=== PATIENT | female | born 2000 | race Two or more races ===

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

== ENCOUNTER 2019-07-23 14:39 | Emergency (ER) | payer OTHER ==
[2019-07-23 14:47] VITALS: BP 142/83
--- NOTE | 2019-07-23 15:07 | ED Physician Documentation ---
History of Present Illness - Stated complaint Stated Complaint: COUGH, SORE THROAT, SOA - Chief complaint Chief Complaint: General - History obtained from History obtained from: Patient (19-year-old woman has been sick since yesterday with some diarrhea, nonproductive cough and sore throat. Also nasal congestion. No fevers. No recent travel or known sick contacts.) Review of Systems Constitutional: denies: Fever, Chills, Fatigue Ears: denies: Ear pain Nose: reports: Rhinorrhea / runny nose Throat: reports: Sore throat Respiratory: reports: Cough. denies: Dyspnea PD PAST MEDICAL HISTORY - Past Surgical History Past Surgical History: No - Present Medications Home Medications: Ambulatory Orders Medication Instructions Recorded Confirmed Hydrocodone/Acetaminophen 1 - 2 each PO Q6H PRN #14 tablet 03/27/18 [Hydrocodon-Acetaminophen 5-325] Guaifenesin/Pseudoephedrne HCl 1 each PO BID PRN #20 tab.er.12h 07/23/19 [Mucinex D ER 600-60 mg Tablet] Loperamide [Imodium] 2 mg PO QID PRN #10 capsule 07/23/19 - Allergies Allergies/Adverse Reactions: Allergies Allergy/AdvReac Type Severity Reaction Status Date / Time No Known Drug Allergies Allergy Verified 07/23/19 14:47 - Social History Does the pt smoke?: No Smoking Status: Never smoker Does the pt drink ETOH?: No Does the pt have substance abuse?: No - Immunizations Immunizations are current?: Yes PD ED PE NORMAL - Vitals Vital signs reviewed: Yes - General General: Alert and oriented X 3, No acute distress - HEENT HEENT: Ears normal, Pharynx benign - Neck Neck: Supple, no meningeal sign, No bony TTP - Cardiac Cardiac: RRR, No murmur - Respiratory Respiratory: No respiratory distress, Clear bilaterally - Abdomen Abdomen: Non tender - Derm Derm: No rash - Neuro Neuro: Alert and oriented X 3, Normal speech - Psych Psych: Normal mood, Normal affect Results - Vitals Vitals: Vital Signs - 24 hr 07/23/19 14:45 Temperature 37 C Heart Rate 108 H Respiratory 16 Rate Blood Pressure 142/83 H O2 Saturation 98 Oxygen O2 Source Room air PD MEDICAL DECISION MAKING - ED course ED course: 19-year-old woman with viral URI. Not typical for current coronavirus outbreak. Supportive care and watchful waiting was advised. Departure - Departure Disposition: 01 Home, Self Care Clinical Impression: Viral URI with cough Condition: Good Record reviewed to determine appropriate education?: Yes Instructions: ED Viral Syndrome Prescriptions: Guaifenesin/Pseudoephedrne HCl [Mucinex D ER 600-60 mg Tablet] 1 each PO BID PRN #20 tab.er.12h PRN Reason: congestion Loperamide [Imodium] 2 mg PO QID PRN #10 capsule PRN Reason: Diarrhea Comments: Return if you develop high fevers, shortness of breath or other new or concerning symptoms. Forms: Activity restrictions
== END 2019-07-23 15:37 | disposition home or self-care (01) ==
LOC: ED 14:39
DX: J06.9 Acute upper respiratory infection, unspecified (principal)
CPT/HCPCS: 99282; 99284

== ENCOUNTER 2020-01-23 16:10 | Emergency (ER) | payer OTHER ==
[2020-01-23 16:54] VITALS: BP 138/82
--- NOTE | 2020-01-23 16:58 | ED Physician Documentation ---
PD HPI LOWER EXT INJURY - Stated complaint Stated Complaint: L KNEE INJURY - Chief complaint Chief Complaint: Ext Problem - History obtained from History obtained from: Patient - History of Present Illness PD HPI LOW EXT INJURY LOCATION: Left, Knee Type of injury: Twist, Blunt / blow (at work, was walking and struck kneecap on furniture as she had leg extended. Feeling of kneecap going displaced laterally. She started to fall and as her leg started to bend, she felt the patella pop back into place. Has pain in anterior knee since. No prior similar episodes.) Where injury occurred: Work Timing - onset: How many hours ago (1), Today Timing - details: Abrupt onset, Now resolved (the kneecap feels back in place, but hurts for movement of the knee, and there is some swelling anterior knee.) Worsened by: Moving, Palpating Associated symptoms: Swelling. No: Weakness, Numbness Similar symptoms before: Has not had sx before Review of Systems Skin: denies: Abrasion (s), Laceration (s) Musculoskeletal: reports: Joint swelling Neurologic: denies: Focal weakness, Numbness PD PAST MEDICAL HISTORY - Past Medical History Cardiovascular: None Respiratory: None Neuro: None Endocrine/Autoimmune: None GI: None [employer]: None : None HEENT: None Psych: None Musculoskeletal: None Derm: None - Past Surgical History Past Surgical History: No - Present Medications Home Medications: Ambulatory Orders Medication Instructions Recorded Confirmed Hydrocodone/Acetaminophen 1 - 2 each PO Q6H PRN #14 tablet 03/27/18 [Hydrocodon-Acetaminophen 5-325] Guaifenesin/Pseudoephedrne HCl 1 each PO BID PRN #20 tab.er.12h 07/23/19 [Mucinex D ER 600-60 mg Tablet] Loperamide [Imodium] 2 mg PO QID PRN #10 capsule 07/23/19 - Allergies Allergies/Adverse Reactions: Allergies Allergy/AdvReac Type Severity Reaction Status Date / Time No Known Drug Allergies Allergy Verified 01/23/20 16:52 - Social History Does the pt smoke?: No Smoking Status: Never smoker Does the pt drink ETOH?: No Does the pt have substance abuse?: No - Immunizations Immunizations are current?: Yes - POLST Patient has POLST: No PD ED PE NORMAL - Vitals Vital signs reviewed: Yes - General General: Alert and oriented X 3, No acute distress, Well developed/nourished - Derm Derm: Normal color, Warm and dry - Extremities Extremities: Other (left knee with some anterior swelling and mild anterior prepatellar swelling. No deformity. Some pain with palpation of the patella. The patellar tendon is intact and she can extend the lower leg against resistance, but hurts at knee. Light testing of cruciates and collaterals is without pain/laxity) - Neuro Neuro: Alert and oriented X 3, No motor deficit, No sensory deficit, Normal speech Results - Vitals Vitals: Vital Signs - 24 hr 01/23/20 16:52 Temperature 36.8 C Heart Rate 100 Respiratory 16 Rate Blood Pressure 138/82 H O2 Saturation 100 Oxygen O2 Source Room air - Rads (name of study) left knee Radiology: Prelim report reviewed (no fractures), See rad report PD MEDICAL DECISION MAKING - ED course Complexity details: considered differential (it does describe like a patellar dislocation and spontaneous relocation. Will have patellar tendon and patellar pain as it heals. ), d/w patient Departure - Departure Disposition: 01 Home, Self Care Clinical Impression: Dislocation, patella closed Qualifiers: Encounter type: initial encounter Laterality: left Qualified Code(s): S83.005A - Unspecified dislocation of left patella, initial encounter Condition: Stable Record reviewed to determine appropriate education?: Yes Instructions: ED Dislocation Patella Follow-Up: Thai Kim MD [Provider Admit Priv/Credential] - Comments: Your x-ray appears normal without any fractures. Your knee will be sore because of the stretch of the tendon and muscle that occurred when the kneecap was out of place. This should improve over several days to week or so. Use the knee brace when up and around to help support the knee. Once is feeling better you can progress to normal activity. Consider a Jordan wrap on the knee for even a couple of weeks while doing activity. Ibuprofen and/or Tylenol as needed for pains. Recheck if not improved well over the next several days to week and back to normal function by about a week. Forms: Activity restrictions Discharge Date/Time: 01/23/20 18:27
[2020-01-23] MEDS ORDERED: IBUPROFEN 600 MG TABLET PO STA (17:16)
--- NOTE | 2020-01-23 17:52 | XRAY Report ---
PROCEDURE: Knee 3 View LT INDICATIONS: knee injury TECHNIQUE: 3 views of the left knee(s) were acquired. COMPARISON: None. FINDINGS: Bones: No fractures or dislocations. No suspicious bony lesions. Soft tissues: No joint effusion. No suspicious soft tissue calcifications. IMPRESSION: Normal left knee plain films. Reviewed by: Maverick Weir MD on 01/23/2020 4:50 PM AKDT Approved by: Maverick Weir MD on 01/23/2020 4:50 PM AKDT Station ID: [id number]
== END 2020-01-23 18:27 | disposition home or self-care (01) ==
LOC: ED 16:10
DX: S83.005A Unspecified dislocation of left patella, initial encounter (principal); W22.03XA Walked into furniture, initial encounter; Y93.01 Activity, walking, marching and hiking; Y99.0 Civilian activity done for income or pay
CPT/HCPCS: 73562; 99283; A9270

== ENCOUNTER 2020-07-05 09:49 | Outpatient (CLI) | payer OTHER ==
--- NOTE | 2020-07-05 14:20 | MRI Report ---
PROCEDURE: Knee LT W/O INDICATIONS: CONTUSION OF L KNEE TECHNIQUE: Noncontrast sagittal PD fast spin echo and T2 fast spin echo with fat saturation, sagittal 3-D gradie nt sequence with fat saturation; coronal T1 spin echo and PD fast spin echo with fat saturation, and axial PD fast spin echo with fat saturation through the knee. COMPARISON: None. FINDINGS: Image quality: Excellent. Menisci: Medial meniscus intact. Lateral meniscus intact. Cruciate ligaments: Anterior cruciate ligament appears intact. Posterior cruciate ligament appears intact. Medial structures: The medial collateral ligament appears intact. The semimembranosus tendon appears intact. Visualized portions of the pes anserinus tendons appear normal. No abnormal bursal fluid. Lateral structures: Lateral collateral ligament appears grossly intact. Biceps femoris tendon appears intact. Iliotibial band within normal limits. Popliteus tendon within normal limits. Anterior structures: Patellar tendon appears intact, although mild adjacent fluid raising possibility of low-grade tendino megan. Quadriceps tendon appears intact. There is soft tissue edema and fluid adjacent to the lateral patellofemoral ligament which appears gr ossly intact although this raises the possibility of low-grade sprain, and/or contusion. The medial p atellofemoral ligament appears intact. Patellar alignment is normal. Hoffa's fat pad unremarkable. Bones and cartilage: No discrete fractures. Subcortical edema involving the anterior patella raising possibility of low-gr landy contusion Within the medial compartment, no focal cartilage defect Within the lateral compartment, no focal cartilage defect Within the patellofemoral compartment, no focal cartilage defect Joint space: No joint effusion. No Pruitt?s cyst. No specific evidence of loose body identified. IMPRESSION: Soft tissue edema adjacent to the lateral patellofemoral ligament which is grossly intact although st ill raises the possibility of low-grade sprain and/or contusion. Additional fluid and edema adjacent to the patellar tendon which suggests low-grade tendinopathy. Ple ase correlate to exam findings. Subtle subchondral marrow edema involving the anterior patella which raise the possibility of mild ma rrow contusion. Recommend correlation for point tenderness. Reviewed by: Tyron Werner MD on 07/05/2020 2:18 PM PST Approved by: Tyron Werner MD on 07/05/2020 2:18 PM PST Station ID: [id number]
== END 2020-07-05 09:50 | disposition home or self-care (01) ==
LOC: DI 09:49
PROVIDERS: ATTEND Physician Assistant
DX: S80.02XA Contusion of left knee, initial encounter (principal)